=== PATIENT | female | born 1965 | race Caucasian/White ===

== ENCOUNTER → 2019-09-23 15:29 | Outpatient (CLI) | payer MEDICAID, SELFPAY ==
--- NOTE | 2019-09-23 15:36 | XR_ITS ---
PROCEDURE: XR CHEST 2V CLINICAL HISTORY: r/o TB Follow-up abnormal chest x-ray, cough, possible TB COMPARISON: XR CHEST 2V from 05/26/2019 FINDINGS: The cardiomediastinal silhouette and pulmonary vascularity are within normal limits. There is an azygos fissure is a normal variant. Increased density is present in the right middle lobe. There is a small right effusion. There are minimal fibrotic changes in the left lung base. IMPRESSION: Right middle lobe pneumonia with small right effusion Dictated by: Logan Barber MD 09/23/2019 15:57 Electronically signed by Logan Barber MD in [place] 09/23/2019 15:57
== END ==
PROVIDERS: PCP Emergency Medicine; Visit Provider Emergency Medicine
DX: R93.89 Abnormal findings on diagnostic imaging of other specified body structures (principal)
CPT/HCPCS: 71046

== ENCOUNTER 2020-09-29 16:10 | Emergency (ER) | payer MEDICAID, SELFPAY ==
--- NOTE | 2020-09-29 16:08 | ECG_ITS ---
APPROVED REPORT Exam: Resting ECG HR:68 bpm ECG Measurements Heart Rate 68 AXES FL 166 P 20 QRSd 78 QRS 6 QT 384 T 36 QTc 408 Conclusion Normal sinus rhythm Low voltage QRS Late R wave progression Abnormal ECG Electronically signed by : Jackson Short, 09/30/2020 07:21:49
[2020-09-29 16:11] VITALS: BP 159/109; PULSE 69; RESP 16; TEMP 37.1; O2SAT 95; BMI 43.4
--- NOTE | 2020-09-29 16:16 | XR_ITS ---
PROCEDURE INFORMATION: Exam: XR Chest Exam date and time: 09/29/2020 4:16 PM Age: 55 years old Clinical indication: Pain; Chest pressure; Additional info: Cp TECHNIQUE: Imaging protocol: XR of the chest. Views: 1 view. COMPARISON: DX XR CHEST 2V 09/23/2019 3:37 PM FINDINGS: Lungs: Patchy airspace opacities and interstitial opacities in the right lung base. Remainder of the lungs are clear. Pleural spaces: Blunting of the right costophrenic angle. Left costophrenic angle is clear. Heart/Mediastinum: Unremarkable. No cardiomegaly. Bones/joints: No acute skeletal abnormality or aggressive osseous lesion. IMPRESSION: 1. Findings in the right lung base are concerning for pneumonia. 2. Small right pleural effusion is noted.
[2020-09-29 16:27] LABS: Basophils # 0.1 K/mm3 (0-0.2); Basophils % 0.6 % (0.1-2.0); Eosinophils # 0.3 K/mm3 (0.0-0.4); Eosinophils % 3.2 % (0.1-12.0); Hematocrit 39.3 % (37.0-47.0); Hemoglobin 13.1 g/dL (12.2-16.2); Lymphocytes # 3.9 K/mm3 (0.7-4.5); Lymphocytes % 39.1 % (10-50); Mean Corpuscular HGB Conc 33.4 g/dL (31.8-35.4); Mean Corpuscular Hemoglobin 29.5 pg (27.0-31.2); Mean Corpuscular Volume 88.3 fl (81-99); Mean Platelet Volume 9.9 fl (7.4-10.4); Monocytes # 0.4 K/mm3 (0.1-1.0); Monocytes % 3.7 % (1.7-9.3); Neutrophils # 5.3 K/mm3 (1.8-7.8); Neutrophils % 53.5 % (37.0-80.0); Platelet Count 221 K/mm3 (142-424); Red Blood Count 4.45 M/mm3 (4.20-5.40); Red Cell Distribution Width 13.1 % (11.5-17.5); White Blood Count 9.9 K/mm3 (4.8-10.8)
[2020-09-29 16:29] LABS: Chloride 100 mmol/L (98-107); Sodium 136 mmol/L (136-145)
[2020-09-29 16:32] LABS: Blood Urea Nitrogen 9 mg/dl (7-17); Creatinine Clearance Estimated 69 mL/min (50-200); Estimated Glomerular Filt Rate 87 ml/min (>60); GFR (African American) 106 ML/MIN (>60)
[2020-09-29 16:33] LABS: Calcium 8.6 mg/dl (8.4-10.2); Carbon Dioxide 28 mmol/L (22.0-30.0); Glucose 107 mg/dl (74-100)
--- NOTE | 2020-09-29 16:39 | HMH.EDGENADL ---
ED Disposition Clinical Impression: Chest pain Qualifiers: Chest pain type: unspecified Qualified Code(s): R07.9 - Chest pain, unspecified Disposition: Home, Self-Care Condition on Discharge: Good Referrals: Abhinav Trevizo MD [Primary Care Provider] - 10/03/20 Time of Disposition: 17:04 - Critical Care Critical Care Time: No Attestation: On , the high probability of a clinically significant, sudden or life threatening deterioration of the following system(s) required my full and direct attention, intervention and personal management. The time I documented below is in addition to time spent performing reported procedures but includes the following listed in this critical care notation. Medical Decision Making - Medical Records Medical records reviewed: Yes: I reviewed the patient's medical records. - Duy Inquiry Pt receiving controlled substance: No Vital Signs: 09/29/20 16:11 Temperature 98.7 F Temperature Source Oral Pulse Rate [Right Radial] 69 Respiratory Rate 16 Blood Pressure [Right Arm] 159/109 H Blood Pressure Mean [Right Arm] 125 02 Sat by Pulse Oximetry 95 Oxygen Delivery Method Room Air - Lab Data Lab results reviewed: Yes: I reviewed the patient's lab results. Lab Results 09/29/20 16:05: WBC 9.9, RBC 4.45, Hgb 13.1, Hct 39.3, MCV 88.3, MCH 29.5, MCHC 33.4, RDW 13.1, Plt Count 221, MPV 9.9, Neut % (Auto) 53.5, Lymph % (Auto) 39.1, [place] % (Auto) 3.7, Eos % (Auto) 3.2, Baso % (Auto) 0.6, Neut # (Auto) 5.3, Lymph # (Auto) 3.9, [place] # (Auto) 0.4, Eos # (Auto) 0.3, Baso # (Auto) 0.1 09/29/20 16:05: Sodium 136, Potassium 4.0, Chloride 100, Carbon Dioxide 28, Anion Gap 12.0, BUN 9, Creatinine 0.70, Estimated Creat Clear 69, Estimated GFR 87, Est GFR ( Amer) 106, Glucose 107 H, Calcium 8.6, Troponin I < 0.01 Result diagrams: 09/29/20 16:05 09/29/20 16:05 Orders (Tests/Meds): ED MEDICATIONS Discontinued Medications Generic Name Dose Route Start Last Admin Trade Name Pedro PRN Reason Stop Dose Admin Aspirin 324 mg 09/29/20 16:26 09/29/20 16:27 Aspirin 81mg Chewable Tablet PO 09/29/20 16:27 324 mg ONCE ONE Administration - ECG Data Tracing #1 Normal sinus rhythm, 60 bpm, no ST elevation or depression, ECG initial impression date: 09/29/20 ECG initial impression time: 16:10 - GEOVANNI Score for Non-Stemi Age of Patient: 50-59 years old Heart Rate: 50-69 bpm Systolic Blood Pressure: 140-159 mmHg Serum Creatinine: 0.40-0.79 mg/dl CHF [place] Class: I-No CHF Other Risk Factors: None Non-Stemi Risk Score: 72 Medical Decision Narrative: 55yo F evaluated for chest pain has been waxing and waning for over a week. Patient in no acute distress on initial evaluation. She believes her chest pain is secondary to crying fits. She denies any suicidal homicidal ideation. Differential diagnosis includes but not limited to: ACS/HI, PE, pneumonia, pneumothorax, anxiety, cholecystitis, gastritis. Physical exam is benign. EKG is benign as reviewed above. CBC and metabolic panel are benign. Troponin is pending at this time. Troponin is negative. Patient is asking if she can go home at this time. She is asymptomatic. Patient is appropriate and stable can follow-up with her PCP early next week. General Adult HPI - General Chief complaint: Chest Pain Stated complaint: chest pain Time Seen by Provider: 09/29/20 16:39 Mode of Arrival: EMS Limitations: No Limitations Description of Symptoms (Recalled from ER Triage Doc. by RN): Pt states she has been having chest pain for a few days now, states she has been more depressed and anxious because she cant get out and go from facility as she would like to. Denies any SOA. - History of Present Illness HPI narrative: 55yo F presents the emergency department secondary to chest pain. Patient reports symptoms have been waxing and waning for greater than a week. She states she has been crying a lot recently because my people ar
[2020-09-29 17:52] LABS: Troponin I < 0.01 ng/ml (0.00-0.034)
[2020-09-29 18:01] VITALS: BP 166/99; PULSE 63; RESP 16; TEMP 36.6; O2SAT 97
--- NOTE | 2020-09-29 18:02 | PC.NURSE ---
Lai Starks has been called to come chart picker patient.
== END 2020-09-29 18:29 | disposition home or self-care (01) ==
PROVIDERS: Emergency Provider Family Medicine; PCP Emergency Medicine
DX: R07.9 Chest pain, unspecified (principal); F41.8 Other specified anxiety disorders; E03.9 Hypothyroidism, unspecified; I10 Essential (primary) hypertension; E66.9 Obesity, unspecified; Z68.41 Body mass index [BMI] 40.0-44.9, adult; F20.9 Schizophrenia, unspecified; Z79.899 Other long term (current) drug therapy
CPT/HCPCS: 71045; 80048; 84484; 85025; 93005; 99282

== ENCOUNTER 2021-02-25 15:21 | Emergency (ER) | payer MEDICAID, SELFPAY ==
[2021-02-25 15:21] VITALS: BMI 44.0
--- NOTE | 2021-02-25 15:24 | XR_ITS ---
PROCEDURE INFORMATION: Exam: XR Chest Exam date and time: 02/25/2021 3:24 PM Age: 55 years old Clinical indication: Cough; Additional info: Cough and congestion TECHNIQUE: Imaging protocol: XR of the chest. Views: 2 views. COMPARISON: CR XR CHEST PORTABLE 09/29/2020 4:25 PM FINDINGS: Lungs: Discoid atelectasis in the left base . No focal consolidation Pleural spaces: Unremarkable. No pleural effusion. No pneumothorax. Heart/Mediastinum: Unremarkable. No cardiomegaly. Bones/joints: Unremarkable. IMPRESSION: No acute process
[2021-02-25 15:30] LABS: Influenza A, PCR Not Detected (NotDetected); Influenza B, PCR Not Detected (NotDetected)
[2021-02-25 15:58] LABS: Coronavirus 19, PCR Detected (NotDetected)
[2021-02-25 16:42] LABS: Basophils % 0.8 % (0.1-2.0); Eosinophils # 0.1 K/mm3 (0.0-0.4); Eosinophils % 2.4 % (0.1-12.0); Hematocrit 42.2 % (37.0-47.0); Hemoglobin 14.1 g/dL (12.2-16.2); Lymphocytes # 1.2 K/mm3 (0.7-4.5); Lymphocytes % 22.6 % (10-50); Mean Corpuscular HGB Conc 33.4 g/dL (31.8-35.4); Mean Corpuscular Hemoglobin 30.1 pg (27.0-31.2); Mean Platelet Volume 9.4 fl (7.4-10.4); Monocytes # 0.5 K/mm3 (0.1-1.0); Monocytes % 8.4 % (1.7-9.3); Neutrophils # 3.6 K/mm3 (1.8-7.8); Neutrophils % 65.8 % (37.0-80.0); Platelet Count 222 K/mm3 (142-424); Red Blood Count 4.69 M/mm3 (4.20-5.40); Red Cell Distribution Width 13.5 % (11.5-17.5); White Blood Count 5.4 K/mm3 (4.8-10.8)
[2021-02-25 16:48] LABS: Chloride 101 mmol/L (98-107); Potassium 3.6 mmoL/L (3.5-5.1); Sodium 138 mmol/L (136-145)
[2021-02-25 16:51] LABS: Blood Urea Nitrogen 7 mg/dl (7-17); Creatinine Clearance Estimated 81 mL/min (50-200); Estimated Glomerular Filt Rate 104 ml/min (>60); GFR (African American) 126 ML/MIN (>60)
[2021-02-25 16:52] LABS: Anion Gap 12.6 mEq/L (5-15); Calcium 8.9 mg/dl (8.4-10.2); Carbon Dioxide 28 mmol/L (22.0-30.0); Glucose 135 mg/dl (74-100)
--- NOTE | 2021-02-25 17:35 | HMH.EDURI ---
ED Disposition Clinical Impression: Upper respiratory infection Qualifiers: URI type: unspecified viral URI Qualified Code(s): J06.9 - Acute upper respiratory infection, unspecified Disposition: Home, Self-Care Condition on Discharge: Good Instructions: DI for Acute Bronchitis Additional Instructions: You were evaluated emergency department today for congestion and cough, and there is no need for further emergent evaluation at this time. Exact cause of symptoms is unclear but is likely viral respiratory infection including possible reinfection with COVID-19 given your positive test. Isolate as directed, use ibuprofen and acetaminophen as needed for symptomatic management, follow-up with primary care physician the next 7 to 10 days for monitoring of any persistent symptoms and coordination of ongoing care needs, and return to the emergency department hesitation with any new or worsening symptoms. Referrals: Abhinav Trevizo MD [Primary Care Provider] - - Critical Care Critical Care Time: No Attestation: On 02/25/21, the high probability of a clinically significant, sudden or life threatening deterioration of the following system(s) required my full and direct attention, intervention and personal management. The time I documented below is in addition to time spent performing reported procedures but includes the following listed in this critical care notation. Medical Decision Making - Duy Inquiry Pt receiving controlled substance: No - Lab Data Lab Results 02/25/21 15:27: SARS-CoV-2 (PCR) Detected A, Influenza A Untype (PCR) Not detected, Influenza Type B (PCR) Not detected 02/25/21 16:30: WBC 5.4, RBC 4.69, Hgb 14.1, Hct 42.2, MCV 90.0, MCH 30.1, MCHC 33.4, RDW 13.5, Plt Count 222, MPV 9.4, Neut % (Auto) 65.8, Lymph % (Auto) 22.6, [place] % (Auto) 8.4, Eos % (Auto) 2.4, Baso % (Auto) 0.8, Neut # (Auto) 3.6, Lymph # (Auto) 1.2, [place] # (Auto) 0.5, Eos # (Auto) 0.1, Baso # (Auto) 0.0 02/25/21 16:30: Sodium 138, Potassium 3.6, Chloride 101, Carbon Dioxide 28, Anion Gap 12.6, BUN 7, Creatinine 0.60, Estimated Creat Clear 81, Estimated GFR 104, Est GFR ( Amer) 126, Glucose 135 H, Calcium 8.9 Result diagrams: 02/25/21 16:30 02/25/21 16:30 Orders (Tests/Meds): ED MEDICATIONS Generic Name Dose Route Start Last Admin Trade Name Pedro PRN Reason Stop Dose Admin Sodium Chloride 1,000 mls @ 999 mls/hr 02/25/21 16:00 02/25/21 16:36 Sod Chlor 0.9% 1000ml Bag IV 02/25/21 17:00 999 mls/hr .Q1H1M STANISLAV Administration Medical Decision Narrative: In summary, the patient is a 55-year-old female presenting for evaluation of several days of cough, congestion, body aches. She is in no acute distress, afebrile and hemodynamically stable, nontoxic in appearance. Initial vital signs in triage demonstrate regular tachycardia, however this is resolved on my evaluation. Physical exam demonstrates comfortable appearing female normal cardiopulmonary exam, mild nasal congestion, mild posterior oropharyngeal erythema without swelling or exudate, soft and nontender abdomen, normal extremity exam. Differential diagnosis includes but is not limited to viral respiratory infection including reinfection of COVID-19, pneumonia, electrolyte abnormality. Will obtain basic laboratory analysis, COVID-19 PCR, chest x-ray, administer ibuprofen, symptomatically, 1 L of IV fluids and reassess the patient clinically. Reassessment: Patient continues to be in no acute distress and hemodynamic stable. Laboratory analysis unremarkable. Chest x-ray does not demonstrate any acute findings. Explained to the patient that the most likely cause of symptoms is viral respiratory infection, possibly including COVID-19 given positive test. It is unclear whether this is a residual positive test or if this represents reinfection. Will discharge with return precautions, recommendation for isolation, recommendation for symptomatic management using ibuprofen an
[2021-02-25 17:43] VITALS: BP 135/78; PULSE 88; RESP 18; TEMP 36.9; O2SAT 97
[2021-02-25 18:30] VITALS: BP 152/54; PULSE 85; RESP 20; O2SAT 93
--- NOTE | 2021-02-25 19:09 | PC.NURSE ---
pt waiting for ride
== END 2021-02-25 19:53 | disposition home or self-care (01) ==
PROVIDERS: Emergency Provider Student in an Organized Health Care Education/Training Program; PCP Emergency Medicine
DX: U07.1 COVID-19 (principal); J06.9 Acute upper respiratory infection, unspecified; F41.8 Other specified anxiety disorders; I10 Essential (primary) hypertension
CPT/HCPCS: 71046; 80048; 85025; 96365; 99202; C9803; G0463; U0003; U0005

== ENCOUNTER 2021-11-08 22:15 | Emergency (ER) | payer MEDICAID, SELFPAY ==
[2021-11-08 22:14] VITALS: BP 149/83; PULSE 80; RESP 18; TEMP 36.7; O2SAT 97; BMI 46.8
--- NOTE | 2021-11-08 22:30 | XR_ITS ---
PROCEDURE INFORMATION: Exam: XR Chest Exam date and time: 11/08/2021 10:27 PM Age: 56 years old Clinical indication: Other: High BP; Additional info: High blood pressure TECHNIQUE: Imaging protocol: Radiologic exam of the chest. Views: 2 views. COMPARISON: CR XR CHEST 2V 02/25/2021 3:36 PM FINDINGS: Lungs: Interstitial coarsening with stable atelectasis at the left lung base. No consolidation. Pleural spaces: No pneumothorax. Heart/Mediastinum: No cardiomegaly. Bones/joints: No acute fracture. IMPRESSION: Stable chest.
[2021-11-08 22:46] LABS: Microscopic, Urine URINE MICROSCOPIC (MICROSCOPIC)
[2021-11-08 22:50] LABS: Appearance,Urine CLEAR (Clear); Bilirubin,Urine Negative (Negative); Blood, Urine Negative (Negative); Color,Urine YELLOW (Yellow); Glucose,Urine (UA) Negative (Negative); Ketones,Urine Negative (Negative); Leukocyte Esterase,Urine TRACE (Negative); Nitrate,Urine Negative (Negative); Protein,Urine Negative (Negative); Specific Gravity, Urine <= 1.005 (1.005-1.030); Urobilinogen,Urine 0.2 EU/dl (0.2)
--- NOTE | 2021-11-08 23:00 | ECG_ITS ---
APPROVED REPORT Exam: Resting ECG HR:76 bpm ECG Measurements Heart Rate 76 AXES [place] 159 P 28 QRSd 93 QRS 4 QT 378 T 22 QTc 408 Conclusion SINUS RHYTHM WITH OCCASIONAL ECTOPIC PREMATURE COMPLEXES BORDERLINE ECG UNCONFIRMED REPORT Electronically signed by : Jackson Short MD 11/12/2021 14:10:20
[2021-11-08 23:11] LABS: Squamous Epithelial Cell,Urine Occasional #/hpf (0-5); WBC,Urine Occasional #/hpf (0-3)
[2021-11-08 23:11] LABS: Basophils # 0.2 K/mm3 (0-0.2); Basophils % 2.2 % (0.1-2.0); Eosinophils # 0.3 K/mm3 (0.0-0.4); Eosinophils % 2.7 % (0.1-12.0); Hematocrit 39.6 % (37.0-47.0); Hemoglobin 13.1 g/dL (12.2-16.2); Lymphocytes # 2.9 K/mm3 (0.7-4.5); Lymphocytes % 28.5 % (10-50); Mean Corpuscular HGB Conc 33.1 g/dL (31.8-35.4); Mean Corpuscular Volume 93.4 fl (81-99); Mean Platelet Volume 10.4 fl (7.4-10.4); Monocytes # 0.4 K/mm3 (0.1-1.0); Monocytes % 3.8 % (1.7-9.3); Neutrophils # 6.3 K/mm3 (1.8-7.8); Neutrophils % 62.8 % (37.0-80.0); Platelet Count 194 K/mm3 (142-424); Red Blood Count 4.24 M/mm3 (4.20-5.40); Red Cell Distribution Width 13.7 % (11.5-17.5)
[2021-11-08 23:13] LABS: Chloride 102 mmol/L (98-107); Potassium 3.5 mmoL/L (3.5-5.1); Sodium 138 mmol/L (136-145)
[2021-11-08 23:16] LABS: Alanine Aminotransferase 14 U/L (12-78); Albumin Level 3.7 g/dl (3.5-5.0); Albumin/Globulin Ratio 1.3 (1.1-1.8); Alkaline Phosphatase 74 U/L (38-126); Anion Gap 8.5 mEq/L (5-15); Aspartate Amino Transferase 20 U/L (14-36); Bilirubin,Total 0.2 mg/dl (0.2-1.3); Blood Urea Nitrogen 7 mg/dl (7-17); Carbon Dioxide 31 mmol/L (22.0-30.0); Creatinine Clearance Estimated 53 mL/min (50-200); Estimated Glomerular Filt Rate 65 ml/min (>60); GFR (African American) 79 ML/MIN (>60); Globulin 2.8 g/dL (1.3-3.2); Total Protein,Serum 6.5 g/dl (6.3-8.2)
[2021-11-08 23:17] LABS: Calcium 8.8 mg/dl (8.4-10.2); Glucose 112 mg/dl (74-100)
[2021-11-08 23:22] LABS: C-Reactive Protein 6.8 mg/L (0-4)
[2021-11-08 23:31] VITALS: BP 155/81; PULSE 70; O2SAT 96
[2021-11-08 23:33] LABS: Troponin I < 0.01 ng/ml (0.00-0.034)
[2021-11-08 23:44] LABS: Procalcitonin < 0.030 ng/mL (0.0-2.0)
[2021-11-08 23:56] LABS: Erythrocyte Sedimentation Rate 12 mm/hr (0-30)
[2021-11-09 00:01] VITALS: BP 145/77; PULSE 70; O2SAT 95
[2021-11-09 00:31] VITALS: BP 154/81; PULSE 67; O2SAT 95
--- NOTE | 2021-11-09 01:51 | HMH.EDWEAK ---
ED Disposition Clinical Impression: Hypertension Qualifiers: Hypertension type: unspecified Qualified Code(s): I10 - Essential (primary) hypertension Disposition: Home, Self-Care Condition on Discharge: Good Instructions: DI for Muscle Weakness Additional Instructions: see pcpc for follow up Referrals: Provider,Referral, [Primary Care Provider] - - Critical Care Critical Care Time: No Attestation: On 11/08/21, the high probability of a clinically significant, sudden or life threatening deterioration of the following system(s) required my full and direct attention, intervention and personal management. The time I documented below is in addition to time spent performing reported procedures but includes the following listed in this critical care notation. Medical Decision Making - Medical Records Medical records reviewed: Yes: I reviewed the patient's medical records. - Duy Inquiry Pt receiving controlled substance: No Vital Signs: 11/08/21 22:14 11/08/21 23:31 11/09/21 00:01 Temperature 98.1 F Temperature Source Oral Pulse Rate 70 70 Pulse Rate [Right] 80 Respiratory Rate 18 Blood Pressure 155/81 H 145/77 H Blood Pressure [Right Arm] 149/83 H Blood Pressure Mean 105 99 Blood Pressure Mean [Right Arm] 105 02 Sat by Pulse Oximetry 97 96 95 11/09/21 00:31 Temperature Temperature Source Pulse Rate 67 Pulse Rate [Right] Respiratory Rate Blood Pressure 154/81 H Blood Pressure [Right Arm] Blood Pressure Mean 105 Blood Pressure Mean [Right Arm] 02 Sat by Pulse Oximetry 95 - Lab Data Lab results reviewed: Yes: I reviewed the patient's lab results. Lab Results 11/08/21 22:41: Urine Color Yellow, Urine Appearance Clear, Urine pH 6.0, Ur Specific [place] <= 1.005, Urine Protein Negative, Urine Glucose (UA) Negative, Urine Ketones Negative, Urine Blood Negative, Urine Nitrate Negative, Urine Bilirubin Negative, Urine Urobilinogen 0.2, Ur Leukocyte Esterase Trace, Urine RBC None, Urine WBC Occasional, Ur Squamous Epith Cells Occasional, Urine Bacteria None 11/08/21 22:56: WBC 10.0, RBC 4.24, Hgb 13.1, Hct 39.6, MCV 93.4, MCH 31.0, MCHC 33.1, RDW 13.7, Plt Count 194, MPV 10.4, Neut % (Auto) 62.8, Lymph % (Auto) 28.5, [place] % (Auto) 3.8, Eos % (Auto) 2.7, Baso % (Auto) 2.2 H, Neut # (Auto) 6.3, Lymph # (Auto) 2.9, [place] # (Auto) 0.4, Eos # (Auto) 0.3, Baso # (Auto) 0.2, ESR 12 11/08/21 22:56: Sodium 138, Potassium 3.5, Chloride 102, Carbon Dioxide 31 H, Anion Gap 8.5, BUN 7, Creatinine 0.90, Estimated Creat Clear 53, Estimated GFR 65, Est GFR ( Amer) 79, Glucose 112 H, Calcium 8.8, Total Bilirubin 0.2, AST 20, ALT 14, Alkaline Phosphatase 74, Troponin I < 0.01, C-Reactive Protein 6.8 H, Total Protein 6.5, Albumin 3.7, Globulin 2.8, Albumin/Globulin Ratio 1.3, Procalcitonin < 0.030 11/09/21 01:35: Troponin I < 0.01 Result diagrams: 11/08/21 22:56 11/08/21 22:56 Orders (Tests/Meds): ORDERS Category Date Time Status Troponin I Q3H Lab 11/09/21 04:45 Ordered - Radiology Data #1 Image(s): Chest Image Reviewed: Yes I have reviewed radiologist's interpretation Preliminary Findings: Normal/NAD - ECG Data Tracing #1 Normal Sinus Rhythm: Yes Ischemic changes: non-specific ST-T wave changes - GEOVANNI Score for Non-Stemi Age of Patient: 50-59 years old Heart Rate: 70-89 bpm Systolic Blood Pressure: 140-159 mmHg Serum Creatinine: 0.80-1.19 mg/dl CHF [place] Class: I-No CHF Other Risk Factors: None Non-Stemi Risk Score: 81 Medical Decision Narrative: has stable exam at this time Weakness HPI - General Chief complaint: Weakness Stated complaint: Weakness Time Seen by Provider: 11/09/21 01:00 Mode of Arrival: EMS Source of Information: Patient, EMS, Medical Record Limitations: No Limitations Description of Symptoms (Recalled from ER Triage Doc. by RN): EMS called out for high blood pressure. pt c/o weakness and dizziness - History of Present Illness
[2021-11-09 02:10] LABS: Troponin I < 0.01 ng/ml (0.00-0.034)
--- NOTE | 2021-11-09 02:55 | PC.NURSE ---
contacted obed prescott to notified pt is ready for discharge
[2021-11-09 03:07] VITALS: BP 142/70; PULSE 75; RESP 18; TEMP 36.8; O2SAT 99
== END 2021-11-09 03:10 | disposition home or self-care (01) ==
PROVIDERS: Emergency Provider Emergency Medicine
DX: I10 Essential (primary) hypertension (principal)
CPT/HCPCS: 71046; 80053; 81001; 84145; 84484; 85025; 85651; 86140; 93005; 99283